=== PATIENT | male | born 1945 | race Caucasian/White ===

== ENCOUNTER 2019-10-11 13:05 | Emergency (ER) | payer OTHER ==
[~2019-10-11] VITALS: Ht 170.2 cm; Wt 76.3 kg
[~2019-10-11 13:05] MED LIST: ASPIR 8181 MG PO; CARVEDILOL3.125 MG PO; CARVEDILOL6.25 MG; COREG PO; COUMADIN 5 MG TA5 M1 PO; LISINOPRIL5 MG PO; PACERONE 200 M200 M1 PO
[2019-10-11 13:33] LABS: ABSOLUTE BASOPHILS 0.1 thou/uL (0.0-0.2); ABSOLUTE EOSINOPHILS 0.1 thou/uL (0.0-0.7); ABSOLUTE MONOCYTES 1.1 thou/uL (0.0-1.2); ABSOLUTE NEUTROPHILS 9.9 thou/uL (1.6-8.1); BASOPHILS 0.4 %; EOSINOPHILS 0.4 %; HEMATOCRIT 41.6 % (42.0-52.0); HEMOGLOBIN 14.1 gm/dL (14.0-18.0); LYMPHOCYTES 21.3 %; MONOCYTES 7.7 %; MPV 8.3 fl. (7.2-11.1); NUCLEATED RBCS 0 /100WBC; PLATELET COUNT* 201 thou/uL (150-400); POLYS 70.2 %; RBC 4.16 mil/uL (4.50-6.00); WBC 14.1 thou/uL (4.0-11.0)
[2019-10-11 13:45] LABS: APTT 24.2 Seconds (25.0-31.3); INR 1.2
[2019-10-11 14:02] LABS: CALCIUM 7.3 mg/dL (8.5-10.1); CREATININE 0.8 mg/dL (0.6-1.3); POTASSIUM 3.9 mmol/L (3.5-5.1)
[2019-10-11 14:09] LABS: ALBUMIN 3.3 g/dL (3.4-5.0); TOTAL BILIRUBIN 0.4 mg/dL (<0.1-1.0); TOTAL PROTEIN 6.3 g/dL (6.4-8.2)
[2019-10-11] MEDS ORDERED: NORCO 5-325 TA1 EAC1 PO (15:37)
[2019-10-11 15:56] VITALS: BP 132/77
--- NOTE | 2019-10-11 18:47 | EKG ---
[place] [address] ELECTROCARDIOGRAM REPORT Name: ASHOKSAVANA Room: [facility].#: [id number] Admission: 10/11/19 Attend Phys: Discharge: 10/11/19 Date of : 49 Date of Service: 10/11/19 1321 Report #: [id number] THIS REPORT FOR: //name// [facility] ED Test Date: 2019-10-11 Test Time: 13:21:37 Pat Name: SAVANA PULIDO Department: Room: Gender: Tipple Operator: : 1945 Requested By: Alberto Ohara Order Number: [id number] MD: Brice Aaron Measurements Intervals [place] Rate: 109 P: OK: QRS: 43 QRSD: 158 T: 244 QT: 343 QTc: 463 Interpretive Statements Atrial fibrillation Premature ventricular contractions Right bundle branch block ST depr, consider ischemia, anterolateral lds Compared to ECG 06/02/2017 13:10:45 Possible ischemia now present Sinus rhythm no longer present Ventricular-paced complex(es) or rhythm no longer present Myocardial infarct finding no longer present Electronically Signed On 10-11-2019 18:46:38 CDT by Brice Aaron [email or web address] <ELECTRONICALLY SIGNED> By: Brice Aaron MD, FACC 10/11/19 1846 1321 1321 Brice Aaron MD, FACC /EPI
== END 2019-10-11 15:57 | disposition home or self-care (01) ==
LOC: M.ERS 13:05
PROVIDERS: Family Medicine
DX: S42.102A Fracture of unspecified part of scapula, left shoulder, initial encounter for closed fracture (principal); S01.81XA Laceration without foreign body of other part of head, initial encounter; S30.1XXA Contusion of abdominal wall, initial encounter; F10.129 Alcohol abuse with intoxication, unspecified; Y90.0 Blood alcohol level of less than 20 mg/100 ml; W10.9XXA Fall (on) (from) unspecified stairs and steps, initial encounter; Y93.89 Activity, other specified; Y92.89 Other specified places as the place of occurrence of the external cause; Y99.8 Other external cause status

== ENCOUNTER → 2020-10-01 | Outpatient (CLI) | payer OTHER ==
[~2020-10-01] MED LIST changes: +NORCO 5-325 TA1 EAC1 PO
[2020-10-01 14:39] LABS: ALBUMIN 3.7 g/dL (3.4-5.0); DIRECT BILIRUBIN 0.2 mg/dL (<0.1-0.3); TOTAL BILIRUBIN 0.6 mg/dL (<0.1-1.0); TOTAL PROTEIN 7.1 g/dL (6.4-8.2)
== END ==
LOC: M.RAD 14:02
PROVIDERS: ATTEND Internal Medicine Cardiovascular Disease
DX: I42.9 Cardiomyopathy, unspecified (principal); Z79.899 Other long term (current) drug therapy